=== PATIENT | female | born 2000 | race Caucasian/White ===

== ENCOUNTER 2021-02-19 17:08 | Emergency (ER) | payer OTHER, SELFPAY ==
[2021-02-19 17:15] VITALS: BP 125/81; PULSE 112; RESP 17; TEMP 36.8; O2SAT 98
--- NOTE | 2021-02-19 17:40 | ED.GENADULT ---
HPI - General Adult General Stated complaint: pain in jaw bottom left Source: patient Mode of arrival: ambulatory Limitations: no limitations History of Present Illness HPI narrative: Sherita is a 20F with a PMH of poor dentition that presented to the ED with left lower molar pain. She has had worsening pain and swelling lymph nodes for 2 days but can not take it anymore. It is better with oragel and worse with eating/drinking. She has had this before. She tried but could not get into a dentist urgently. No trouble breathing or swallowing. Related Data Allergies Allergy/AdvReac Type Severity Reaction Status Date / Time No Known Allergies Allergy Verified 02/19/21 17:41 Review of Systems Constitutional: Constitutional: Reports no additional constitutional complaints, Denies chills and Denies fever(s) Eyes: Eyes: Reports no additional eye complaints ENT: Reports as per HPI Cardiovascular: Cardiovascular: Reports no additional cardiovascular complaints Respiratory: Respiratory: Reports no additional respiratory complaints Gastrointestinal: Gastrointestinal: Reports no additional gastrointestinal complaints Genitourinary: Genitourinary: Reports no additional female genitourinary complaints Musculoskeletal: Musculoskeletal: Reports no additional musculoskeletal complaints Integumentary/Breasts: Skin/Breast: Reports system reviewed and no additional complaints, except as docu Neurologic: Reports system reviewed and no additional complaints, except as documented Psychiatric: Psychiatric: Reports no additional psychiatric complaints Endocrine: Endocrine: Reports no additional endocrine complaints Hematologic/Lymphatic: Hematologic/Lymphatic: Reports no additional hematologic/lymphatic complaints Allergic/Immunologic: Allergic/Immunologic: Reports no additional allergic/immunologic complaints Exam Const: General: no acute distress and alert Orientation/consciousness: patient oriented x3 Limitations: No altered mental status HENMT: Head: normal to inspection Other: Poor dentition. Left lower molars were cracked, black, and very TTP. Eyes: Conjunctivae: conjunctivae normal Pupils: Equal, round and reactive pupils present Neck: Other: Palpable anterior cervical and sub mandibular lymphadenopathy Chest: Chest palpation & inspection: normal inspection of the chest Resp: Effort & Inspection: normal respiratory effort, not labored and not tachypneic Cardio: Rate: regular rate Skin: General skin exam: normal color Rashes: no rashes Neuro: General: patient oriented x3, moves all extremities, no focal motor deficits and CN's II-XI intact bilaterally Extrem: General: normal to inspection Psych: Appearance: grossly normal Mental Status: mental status grossly normal Thought content: Yes Normal thought content present Course Course Emergency Course: Given a dose of [place] and Augmentin Discharge Plan Discharge Clinical Impression: Dental infection Patient Disposition: Home, Self-Care Condition: Stable Instructions: Antibiotic Form Additional Instructions: Please return to the emergency department for any new, concerning, or worsening symptoms. Please make an appointment with a dentist as soon as you can. Prescriptions: New amoxicillin-pot clavulanate [Augmentin] 875-125 mg tablet 1 tablet PO Q12H Qty: 10 RF: 0 hydrocodone-acetaminophen 5-325 mg tablet 1 tablet PO Q8H PRN (Reason: pain) Qty: 10 RF: 0 amoxicillin-pot clavulanate [Augmentin] 875-125 mg tablet 1 tablet PO Q12H Qty: 10 RF: 0 hydrocodone-acetaminophen 5-325 mg tablet 1 tablet PO Q8H PRN (Reason: pain) Qty: 10 RF: 0 Follow-up/Referrals: John Mitchell M.D. [Primary Care Provider] -
[2021-02-19] MEDS: HYDROcodone/acetaminophen (*CRX) 5-325 MG TABLET 1 TAB PO (17:45)
[2021-02-19] MEDS: AMOXICILLIN/CLAVULANATE K 875-125 MG TAB 1 TABLET PO (17:46)
[2021-02-19 18:00] VITALS: RESP 14
== END 2021-02-19 18:00 | disposition home or self-care (01) ==
PROVIDERS: Emergency Provider Family Medicine; PCP Family Medicine
DX: K04.7 Periapical abscess without sinus (principal)
CPT/HCPCS: 99283; A9270

== ENCOUNTER 2022-07-01 15:27 | Emergency (ER) | payer OTHER, SELFPAY ==
--- NOTE | 2022-07-01 15:33 | ED.DENTAL ---
HPI - Dental/Oral General Chief complaint: Dental/Oral Stated complaint: tooth ache Time Seen by Provider: 07/01/22 15:32 Source: patient Mode of arrival: ambulatory Limitations: no limitations History of Present Illness HPI Narrative: 22-year-old female presents to the ER with left upper dental pain. She has extensive dental caries. No fever or chills. tooth number 12.13 have fractured crowns with caries. MD Complaint: tooth pain Location: Tooth # ( Twelve, 13) Onset (ago): day(s) Duration: constant Severity: moderate Exacerbating factors: cold and heat Context: history of dental caries Treatment prior to arrival: none Related Data Allergies Allergy/AdvReac Type Severity Reaction Status Date / Time Penicillins Allergy Hives Verified 07/01/22 15:34 Review of Systems Review of Systems: All systems reviewed & are unremarkable except as noted in HPI and below Constitutional: Constitutional: Reports as per HPI and Reports no additional constitutional complaints Eyes: Eyes: Reports as per HPI and Reports no additional eye complaints ENT: Reports system reviewed and no additional complaints, except as documented and Reports as per HPI Comments: Extensive dental caries. Multiple crowns missing. Cardiovascular: Cardiovascular: Reports as per HPI and Reports no additional cardiovascular complaints Respiratory: Respiratory: Reports as per HPI and Reports no additional respiratory complaints Gastrointestinal: Gastrointestinal: Reports as per HPI and Reports no additional gastrointestinal complaints Genitourinary: Genitourinary: Reports no additional female genitourinary complaints and Reports as per HPI Musculoskeletal: Musculoskeletal: Reports no additional musculoskeletal complaints and Reports as per HPI Integumentary/Breasts: Skin/Breast: Reports system reviewed and no additional complaints, except as docu and Reports as per HPI Neurologic: Reports system reviewed and no additional complaints, except as documented and Reports as per HPI Psychiatric: Psychiatric: Reports no additional psychiatric complaints and Reports as per HPI Endocrine: Endocrine: Reports no additional endocrine complaints and Reports as per HPI Hematologic/Lymphatic: Hematologic/Lymphatic: Reports no additional hematologic/lymphatic complaints and Reports as per HPI Allergic/Immunologic: Allergic/Immunologic: Reports no additional allergic/immunologic complaints and Reports as per HPI [facility] Past Medical History Medical History (Updated 07/01/22 @ 15:45 by Naga Givens MD) Dental caries Exam Const: General: no acute distress Nutritional Appearance: thin Orientation/consciousness: patient oriented x3 Limitations: no limitations HENMT: Head: normal to inspection Ears: external ears normal Face/Nose/Sinus: Normal external nose present Face and sinus: normal facial exam Throat: posterior oropharynx normal Other: tooth 12. , 13 have partially fractured crowns with caries. Eyes: Conjunctivae: conjunctivae normal Pupils: Equal, round and reactive pupils present EOM: EOMs intact bilaterally Direct Ophthalmoscopy: no photophobia Neck: Neck: normal visual inspection, no lymphadenopathy and no meningeal signs Chest: Chest palpation & inspection: normal inspection of the chest Resp: Effort & Inspection: normal respiratory effort Auscultation: clear to auscultation bilaterally Cardio: Rate: regular rate Rhythm: regular rhythm GI: GI Palp: Yes Soft to palpation Auscultation: normal bowel sounds Other: No tenderness/rigidity /rebound : General: Yes no CVA tenderness Back/Spine/Pelvis: Back: no CVA tenderness Skin: General skin exam: normal color Rashes: no rashes Wounds: no wounds Neuro: General: patient oriented x3, moves all extremities, no meningeal signs, no focal motor deficits and CN's II-XI intact bilaterally Cranial nerves: Yes Nystagmus not present Speech: normal speech Gait exam (Neuro): Norm
[2022-07-01 15:35] VITALS: BP 128/97; PULSE 95; RESP 16; TEMP 36.7; O2SAT 100
[2022-07-01] MEDS: CLINDAMYCIN HCL 150 MG CAP 300 MG PO (15:44)
[2022-07-01] MEDS: HYDROcodone/acetaminophen (*CRX) 5-325 MG TABLET 1 TAB PO (15:44)
[2022-07-01 15:51] VITALS: BP 128/97; PULSE 95; RESP 16; TEMP 36.7; O2SAT 100
== END 2022-07-01 15:55 | disposition home or self-care (01) ==
LOC: CHSED 15:49
PROVIDERS: Emergency Provider Internal Medicine Critical Care Medicine
DX: K02.9 Dental caries, unspecified (principal); S02.5XXA Fracture of tooth (traumatic), initial encounter for closed fracture; K08.89 Other specified disorders of teeth and supporting structures
CPT/HCPCS: 99283; A9270

== ENCOUNTER 2023-10-27 18:17 | Emergency (ER) | payer OTHER, SELFPAY ==
[2023-10-27 18:17] VITALS: BP 138/91; PULSE 116; RESP 20; TEMP 37.3; O2SAT 100
[2023-10-27 18:32] VITALS: O2SAT 99
--- NOTE | 2023-10-27 18:35 | ED.GENADULT ---
HPI - General Adult General Chief complaint: Upper Respiratory Infection Stated complaint: flu symptoms Source: patient Mode of arrival: ambulatory Limitations: no limitations History of Present Illness HPI narrative: 23 years old white female came to the emergency room by private car complaining of fever, chills, body aches, runny nose, coughing, headache started yesterday. She denies sick contact. She lives with asymptomatic family and friends. She smokes cigarettes, she denied drinking alcohol or using drugs. Patient is healthy otherwise. Related Data Allergies Allergy/AdvReac Type Severity Reaction Status Date / Time Penicillins Allergy Hives Verified 10/27/23 18:24 Review of Systems Review of Systems: All systems reviewed & are unremarkable except as noted in HPI and below PMFSH Past Medical History Medical History Dental caries Exam Narrative: General appearance: Well-developed, well-nourished , Skin: Normal color Head: Normocephalic, nontraumatic Eyes: Clear conjunctiva ENT: Oropharynx normal, ears normal, nose normal Neck: Supple, nontender Chest and respiratory: Airway patent, no respiratory distress, no accessory muscle use Heart: Regular rate/rhythm Musculoskeletal: Normal range of motion, nontender back Neurologic: Alert and oriented ?3, [employer] is normal as tested, no gross motor deficit Course Vital Signs Vital signs: Vital Signs Temperature 37.3 C 10/27/23 18:17 Pulse Rate 116 H 10/27/23 18:17 Respiratory Rate 20 10/27/23 18:17 Blood Pressure 138/91 H 10/27/23 18:17 Pulse Oximetry 100 10/27/23 18:17 Oxygen Delivery Room Air 10/27/23 18:17 Temperature 37.3 C 10/27/23 18:17 Pulse Rate 116 H 10/27/23 18:17 Respiratory Rate 20 10/27/23 18:17 Blood Pressure 138/91 H 10/27/23 18:17 Pulse Oximetry 99 10/27/23 18:32 Oxygen Delivery Room Air 10/27/23 18:32 Medical Decision Making [facility] Narrative Medical decision making narrative: viral infection is my concern Workup today came back positive for influenza A. Patient received the 1st tablet of Tamiflu in the ED prior to discharge. Patient received Tylenol and ibuprofen prior to discharge. Differential Diagnosis Differential Diagnosis: Viral infection Medical Records Medical records reviewed: Yes I reviewed the external patient's medical records. Vital Signs Vital Signs: Vital Signs Temperature 37.3 C 10/27/23 18:17 Pulse Rate 116 H 10/27/23 18:17 Respiratory Rate 20 10/27/23 18:17 Blood Pressure 138/91 H 10/27/23 18:17 Pulse Oximetry 100 10/27/23 18:17 Oxygen Delivery Room Air 10/27/23 18:17 Temperature 37.3 C 10/27/23 18:17 Pulse Rate 116 H 10/27/23 18:17 Respiratory Rate 20 10/27/23 18:17 Blood Pressure 138/91 H 10/27/23 18:17 Pulse Oximetry 99 10/27/23 18:32 Oxygen Delivery Room Air 10/27/23 18:32 Lab Data Lab results reviewed: Yes I reviewed the patient's lab results. Labs: Lab Results 10/27/23 Range/Units 18:31 Influenza A (RT-PCR) Positive A (Negative) Influenza B (RT-PCR) Negative (Negative) RSV (RT-PCR) Negative (Negative) SARS-CoV-2 RNA (RT-PCR) Negative (Negative) Critical Care Time Critical Care Time Critical Care Time: No Discharge Plan Discharge Clinical Impression: Influenza A Patient Disposition: Home, Self-Care Condition: Stable Instructions: Influenza (ED) Additional Instructions: Return if symptoms are worsening , call your family physician for appointment, take Tylenol as as needed for aches and pain, continue home medications., take
[2023-10-27] MEDS: ACETAMINOPHEN 325 MG TABLET 650 MG PO (18:39)
[2023-10-27] MEDS: IBUPROFEN 600 MG TABLET PO (18:39)
--- NOTE | 2023-10-27 19:01 | PC.NURSE ---
patient report received from KEATON Jim. patient resting on stretcher, awaiting results.
[2023-10-27 19:10] LABS: SARS-CoV-2 RNA PCR Negative (Negative)
[2023-10-27 19:23] LABS: Influenza A QL RT-PCR Positive (Negative); Influenza B QL RT-PCR Negative (Negative); RSV RNA, RT-PCR Negative (Negative)
--- NOTE | 2023-10-27 19:30 | PC.NURSE ---
patient awake and alert, ambulatory to bathroom at this time without difficulty.
[2023-10-27] MEDS: OSELTAMIVIR PHOSPHATE 75 MG CAPSULE PO (19:39)
[2023-10-27 19:40] VITALS: BP 112/65; PULSE 123; RESP 18; TEMP 37.5; O2SAT 100
== END 2023-10-27 19:53 | disposition home or self-care (01) ==
PROVIDERS: Emergency Provider Emergency Medicine; PCP Family Medicine
DX: J10.1 Influenza due to other identified influenza virus with other respiratory manifestations (principal); Z20.822 Contact with and (suspected) exposure to COVID-19
CPT/HCPCS: 87637; 99283; A9270

== ENCOUNTER 2025-05-21 08:09 | Emergency (ER) | payer OTHER, SELFPAY ==
--- NOTE | ~2025-05-21 | CT_ITS ---
EXAMINATION: CT abdomen pelvis w con, 05/21/2025 9:10 CDT HISTORY: Lower abdominal pain, nausea, vomiting COMPARISON: No comparisons available. TECHNIQUE: CT scan of the abdomen and pelvis was performed with contrast. Isovue 300, 92cc injected IV. One or more of the following dose reduction techniques were used: automated exposure control, adjustment of the mA and/or kV according to patient size, use of iterative reconstruction technique. Unless otherwise stated, incidental findings do not require dedicated follow up imaging FINDINGS: CT abdomen: LUNG BASES: The lung bases are clear. The visualized portions of the heart and pericardium are unremarkable. LIVER: Unremarkable, liver contours intact, no lesions. SPLEEN: Unremarkable, no splenomegaly. KIDNEYS: Right Kidney: Unremarkable. No calculi. No hydronephrosis. Left Kidney: Unremarkable. No calculi. No hydronephrosis ADRENAL GLANDS: Unremarkable. PANCREAS: Unremarkable. GALLBLADDER/BILIARY: Unremarkable. No biliary dilatation. STOMACH AND ESOPHAGUS: Visualized stomach and esophagus within normal limits. BOWEL/MESENTERY: Moderate fecal content in large bowel, no colitis or diverticulitis. Appendix air filled. Mesentery normal. No dilated or thickened loops of small bowel. ADENOPATHY/RETROPERITONEUM: No lymphadenopathy. AORTA/VASCULATURE: Normal caliber aorta. FREE FLUID OR FREE AIR: None. CT pelvis: SOLID ORGANS/REPRODUCTIVE: Cystic right ovarian lesion 4 x 4 centimeters probable functional cyst, pelvic ultrasound recommended in 6 weeks to assess resolution. BLADDER: Within normal limits. OSSEOUS STRUCTURES: No acute osseous abnormality.No suspicious lesions. OVERLYING SOFT TISSUES: Unremarkable. IMPRESSION: 1. No acute intra-abdominal process. Incidental findings above Reviewed, dictated and finalized at location A.
[2025-05-21 08:11] VITALS: BP 120/82; PULSE 77; RESP 18; TEMP 36.8; O2SAT 100
--- NOTE | 2025-05-21 08:17 | ECG_ITS ---
Test Date: 2025-05-21 08:41:08 Measurements Intervals [place] Rate: 87 P: 60 AK: 148 QRS: 24 QRSD: 84 T: 36 QT: 341 QTc: 411 Interpretive Statements SINUS RHYTHM POSSIBLE LEFT ATRIAL ENLARGEMENT CONSIDER RIGHT VENTRICULAR CONDUCTION DELAY BASELINE ARTIFACT- I, III, AVL, AVF, V4-V6 BORDERLINE ECG No previous ECG available for comparison Electronically Signed On 05-21-2025 09:03:27 CDT by Gage Jones D.O.
--- NOTE | 2025-05-21 08:17 | ED_ITS ---
HPI - Abdominal Pain General Chief Complaint: Abdominal Pain Stated Complaint: ABD PAIN Time Seen by Provider: 05/21/25 08:17 Source: patient Mode of arrival: ambulatory Limitations: no limitations History of Present Illness HPI narrative: this is a 25-year-old female who presents with abdominal pain started a couple days ago with some episode of nausea currently not nauseated with no fever chills has dysuria with no hematuria no flank pain no diarrhea constipation no chest pain or shortness of breath. MD elicited complaint: abdominal pain Onset (ago): day(s) Pain Consistency: constant Location: periumbilical and suprapubic Severity: moderate Pain scale (0-10): 8 Quality: aching Radiation: suprapubic Migration to: no migration Exacerbating factors: nothing Relieving factors: nothing Related Data Home Medications ?Medication ?Instructions ?Recorded ?Confirmed ?Last Taken ?Type No Home Medications 05/21/25 05/21/25 U nknown History Allergies Allergy/AdvReac Type Severity Reaction Status Date / Time Penicillins Allergy Hives Verified 05/21/25 08:18 Review of Systems Review of Systems: All systems reviewed & are unremarkable except as noted in HPI and below PMFSH Past Medical History Medical History Dental caries Exam Const: General: healthy appearing Nutritional Appearance: well nourished Orientation/consciousness: patient oriented x3 Limitations: no limitations HENMT: Head: normal to inspection Eyes: Conjunctivae: conjunctivae normal Pupils: Equal, round and reactive pupils present Neck: Neck: normal visual inspection Chest: Chest palpation & inspection: normal inspection of the chest GI: GI Palp: Yes Soft to palpation and Yes Tenderness to palpation present (GI) : General: Yes Bladder palpation abnormal ( Suprapubic tenderness with palpation) Urinary Catheter: Urinary Catheter: patent and draining Back/Spine/Pelvis: Back: no CVA tenderness Skin: General skin exam: normal color Rashes: no rashes Neuro: General: patient oriented x3 and moves all extremities Course Course Emergency Course: patient had blood work and CMP performed showed a glucose of 45 bedside glucose showed 85, the patient received IV fluids and labs reviewed show a normal white blood cell count with normal H&H CT scan was unremarkable with no acute abdominal findings UA was positive for a urinary tract infection. Vital Signs Vital signs: Vital Signs Temperature 36.8 C 05/21/25 08:11 Pulse Rate 77 05/21/25 08:11 Respiratory Rate 18 05/21/25 08:11 Blood Pressure 120/82 05/21/25 08:11 Pulse Oximetry 100 05/21/25 08:11 Oxygen Delivery Room Air 05/21/25 08:11 Temperature 36.8 C 05/21/25 08:11 Pulse Rate 77 05/21/25 08:11 Respiratory Rate 18 05/21/25 08:11 Blood Pressure 120/82 05/21/25 08:11 Pulse Oximetry 100 05/21/25 08:11 Oxygen Delivery Room Air 05/21/25 08:11 Critical Care Time Critical Care Time Critical Care Time: No Discharge Plan Discharge Clinical Impression: UTI (urinary tract infection) Qualifiers: Urinary tract infection type: site unspecified Hematuria presence: without hematuria Qualified Code(s): N39.0 - Urinary tract infection, site not specified Patient Disposition: Home Condition: Stable Instructions: Antibiotic Form, Urinary Tract Infection in Women (ED) Patient Language: Croatian Prescriptions: No Action No Home Medications Follow-up/Referrals: UNKNOWN,DOCTOR [Non-Staff]
--- NOTE | 2025-05-21 08:29 | PC.NURSE ---
covid culture sent to lab
[2025-05-21] MEDS: KETOROLAC 30 MG/ML VIAL (*BKC) IV PUSH (08:36)
[2025-05-21] MEDS: SODIUM CHLORIDE 0.9% IV 1,000 ML 999 ML IV CONT (08:37)
[2025-05-21 08:43] LABS: Hematocrit 44.2 % (35.0-49.0); Hemoglobin 14.1 g/dL (12.0-15.0); Immature Granulocyte Percent A 0.1 % (0.0-0.0); Lymphocytes Absolute Auto 3.14 K/mm3 (1.10-4.50); Mean Corpuscular HGB Conc 31.9 g/dL (32-36); Mean Corpuscular Hemoglobin 30.5 pg (27.0-31.0); Mean Corpuscular Volume 95.7 fL (78.0-102.0); Nucleated Red Blood Cells Absolute Auto 0.00 K/mm3 (0.00-0.00); Nucleated Red Blood Cells Perc 0.0 % (0-0.0); Platelet Count Result 324 K/mm3 (150-420); Red Blood Count 4.62 M/mm3 (4.20-5.40); White Blood Count 7.3 K/mm3 (4.8-10.8)
[2025-05-21 08:44] LABS: Add Urine Microscopic? YES; Appearance Urine Sl Cloudy (Clear); Glucose Urine UA Negative (Negative); Leukocyte Esterase Ur 1+ LEU/UL (Negative); Nitrate Urine Negative (Negative); Specific Grav Ur >= 1.030 (1.010-1.020)
[2025-05-21 08:46] LABS: Pregnancy On Board Control Positive
[2025-05-21 08:54] LABS: Alanine Aminotransferase 15 U/L (6-35); Albumin Level 4.6 g/dL (3.5-5.1); Alkaline Phosphatase 60 U/L (38-126); Anion Gap 9 mmol/L (4-12); Aspartate Amino Transferase 20 U/L (14-36); Bilirubin,Total 0.4 mg/dL (0.2-1.3); Blood Urea Nitrogen 5 mg/dL (7-17); Calcium 9.3 mg/dL (8.4-10.2); Carbon Dioxide 27 mmol/L (22-30); Chloride 106 mmol/L (98-107); Estimated CRCL calculation 71 ml/min; Estimated Glomerular Filt Rate > 60; Lipase 129 U/L (23-300); Osmolality Calculated 288 mOsm/kg (285-295); Potassium 3.6 mmol/L (3.4-5.0); Sodium 142 mmol/L (137-145); Total Protein 7.5 g/dL (6.3-8.2)
[2025-05-21 08:57] LABS: INR 0.9; Partial Thromboplastin Time 27.1 Sec (23.9-30.70); Prothrombin Time 10.1 Seconds (9.50-12.1)
[2025-05-21 08:58] LABS: Glucose 45 mg/dL (65-110)
[2025-05-21 09:19] LABS: Influenza A QL RT-PCR Negative (Negative); Influenza B QL RT-PCR Negative (Negative); RSV RNA, RT-PCR Negative (Negative); SARS-CoV-2 RNA PCR Negative (Negative)
[2025-05-21 12:16] VITALS: BP 100/64; PULSE 97; RESP 20; TEMP 36.7; O2SAT 100
--- NOTE | 2025-05-24 14:57 | PC.NURSE ---
preliminary blood cultures x2 reviewed. no growth in 24 hours
--- NOTE | 2025-05-25 12:52 | PC.NURSE ---
PRELIMINARY BLOOD CULTURE NO GROWTH IN 48 HOURS
--- NOTE | 2025-05-27 13:21 | PC.NURSE ---
blood culture, no growth, final
== END 2025-05-21 12:19 | disposition home or self-care (01) ==
PROVIDERS: Emergency Provider Emergency Medicine; PCP Family Medicine
DX: N39.0 Urinary tract infection, site not specified (principal); Z20.822 Contact with and (suspected) exposure to COVID-19
CPT/HCPCS: 36415; 74177; 80053; 81001; 81025; 82948; 83605; 83690; 85025; 85610; 85730; 87040; 87637; 93005; 96361; 96374; 99284; J1885; J7030; Q9967